=== PATIENT | male | born 1935 | race Caucasian/White ===

== ENCOUNTER 2018-10-10 08:26 | Emergency (ER) | payer MEDICARE, BC ==
--- NOTE | 2018-10-10 10:11 | EDM.PDOC ---
ED HPI GENERAL MEDICAL PROBLEM - General Chief Complaint: Upper Extremity Injury/Pain Stated Complaint: FALL/R SHOULDER PAIN Time Seen by Provider: 10/10/18 09:12 Source of Information: Reports: Patient History Limitations: Reports: No Limitations - History of Present Illness INITIAL COMMENTS - FREE TEXT/NARRATIVE: The patient presents with right shoulder pain. He was walking off a curve and fell and landed on his right arm. He has pain to the right shoulder. He has no pain in the right wrist or elbow just the shoulder. He did not hit his head or hurt his neck. He had no LOC. He has pain with moving his shoulder and he hears a grinding noise in his shoulder. Onset: Sudden Duration: Day(s): (Yesterday) Location: Reports: Upper Extremity, Right (shoulder) Quality: Reports: Sharp Severity: Moderate Improves with: Reports: Immobilization Worsens with: Reports: Movement Associated Symptoms: Reports: No Other Symptoms Right Upper Arm Pain Score (Numeric/FACES): 2 - Related Data Allergies Allergy/AdvReac Type Severity Reaction Status Date / Time No Known Allergies Allergy Verified 10/10/18 09:02 Home Meds: Home Meds Enalapril [Vasotec] 1 tab PO DAILY 10/10/18 [History] Omeprazole Magnesium [Prilosec Otc] 10 mg PO DAILY 10/10/18 [History] Warfarin [Coumadin] 1 tab PO ASDIRECTED 10/10/18 [History] traMADol [Ultram] 50 - 100 mg PO Q6H PRN #20 tab 10/10/18 [Rx] Past Medical History Cardiovascular History: Reports: High Cholesterol, Hypertension Neurological History: Reports: Other (See Below) Other Neuro History: West Nile virus - Past Surgical History HEENT Surgical History: Reports: Tonsillectomy Social & Family History - Tobacco Use Smoking Status *Q: Never Smoker Second Hand Smoke Exposure: Yes - Caffeine Use Caffeine Use: Reports: Coffee - Recreational Drug Use Recreational Drug Use: No Review of Systems - Review of Systems Review Of Systems: See Below Constitutional: Reports: No Symptoms Eyes: Reports: No Symptoms Ears: Reports: No Symptoms Nose: Reports: No Symptoms Mouth/Throat: Reports: No Symptoms Respiratory: Reports: No Symptoms Cardiovascular: Reports: No Symptoms GI/Abdominal: Reports: No Symptoms Genitourinary: Reports: No Symptoms Musculoskeletal: Reports: Shoulder Pain (Right) ED EXAM, GENERAL - Physical Exam Exam: See Below Exam Limited By: No Limitations General Appearance: Alert, No Apparent Distress Ears: Normal External Exam Nose: Normal Inspection Head: Atraumatic, Normocephalic Neck: Normal Inspection Respiratory/Chest: No Respiratory Distress Extremities: Other (Abrasions to the right wrist. Pain upon palpation to the lateral shoulder. Limited range of motion due to pain. Good sensation and pulses distally.) Course - Vital Signs Last Recorded V/S: Last Vital Signs Temp 98 F 10/10/18 08:59 Pulse 96 10/10/18 08:59 Resp 16 10/10/18 08:59 BP 144/66 H 10/10/18 08:59 Pulse Ox 96 10/10/18 08:59 - Orders/Labs/Meds Orders: Active Orders 24 hr Category Date Time Status Humerus Rt [CR] Stat Exams 10/10/18 09:25 Taken Shoulder Comp Rt [CR] Stat Exams 10/10/18 09:24 Taken - Re-Assessments/Exams Free Text/Narrative Re-Assessment/Exam: 10/10/18 10:09 I ordered an x-ray of his shoulder and humerus and I do not see a fracture just some mild arthritis. I am concerned he may have an injured rotator cuff. I will have him see OT and Dr Fuller. Departure - Departure Time of Disposition: 10:10 Disposition: Home, Self-Care 01 Condition: Good Clinical Impression: Fall Qualifiers: Encounter type: initial encounter Qualified Code(s): W19.XXXA - Unspecified fall, initial encounter Abrasion of right wrist Qualifiers: Encounter type: initial encounter Qualified Code(s): S60.811A - Abrasion of right wrist, initial encounter Shoulder pain, right Qualifiers: Chronicity: acute Qualified Code(s): M25.511 - Pain in right shoulder Injury of right rotator cuff Qualifiers: Encounter type: initial encounter Qualified Code(s): S46.001A - Unspecified injury of muscle(s) and tendon(s) of the rotator cuff of right shoulder, initial encounter - Discharge Information *PRESCRIPTION DRUG MONITORING PROGRAM REVIEWED*: No *COPY OF PRESCRIPTION DRUG MONITORING REPORT IN PATIENT ANYI: No Prescriptions: traMADol [Ultram] 50 - 100 mg PO Q6H PRN #20 tab PRN Reason: Pain Referrals: Jamar Moran Jr, MD [Primary Care Provider] - Jovani Fuller MD [Physician] - 2 Weeks Additional Instructions: Take motrin or tylenol for pain. If that does not work, try the tramadol. Ice your shoulder for 15 minutes 3 times per day for 2 days. Follow up with occupational therapy at any of our therapists in [facility]. Follow up with Dr Fuller in 2 weeks. Please return if you are worse. - My Orders Last 24 Hours: My Active Orders 10/10/18 09:24 Shoulder Comp Rt [CR] Stat 10/10/18 09:25 Humerus Rt [CR] Stat - Assessment/Plan Last 24 Hours: My Active Orders 10/10/18 09:24 Shoulder Comp Rt [CR] Stat 10/10/18 09:25 Humerus Rt [CR] Stat
--- NOTE | 2018-10-10 10:55 | CR ---
Right shoulder: Three views of the right shoulder were obtained. Inferior spurring is noted within the acromioclavicular joint as well as small spur noted superiorly within the acromioclavicular joint. Glenohumeral joint is unremarkable. No acute fracture or dislocation is seen. Mild inferior spurring is seen off the acromion process. Incidental granuloma is noted within the right upper chest. Impression: 1. Degenerative change and incidental lung granuloma. 2. Nothing acute is appreciated on right shoulder exam. Diagnostic code #2
--- NOTE | 2018-10-10 10:55 | CR ---
Right humerus: Two views of the right humerus were obtained. Comparison: No previous study. Mild degenerative change is partially seen within the elbow. Humerus appears intact. No fracture is seen. Inferior spurring and superior spurring is noted within the acromioclavicular joint. Impression: 1. Degenerative change. Nothing acute is appreciated within the right humerus. Diagnostic code #2
== END 2018-10-10 10:27 | disposition home or self-care (01) ==
LOC: JD.ED 08:26
DX: S46.001A Unspecified injury of muscle(s) and tendon(s) of the rotator cuff of right shoulder, initial encounter (principal); S60.811A Abrasion of right wrist, initial encounter; I10 Essential (primary) hypertension; E78.00 Pure hypercholesterolemia, unspecified; Z77.22 Contact with and (suspected) exposure to environmental tobacco smoke (acute) (chronic); Z79.899 Other long term (current) drug therapy; W19.XXXA Unspecified fall, initial encounter
CPT/HCPCS: 73030-26-RT; 73030-RT; 73060-26-RT; 73060-RT; 99283; 99283-25

== ENCOUNTER 2019-03-01 10:32 | Emergency (ER) | payer MEDICARE, BC ==
--- NOTE | 2019-03-01 11:23 | EDM.PDOC ---
ED HPI GENERAL MEDICAL PROBLEM - General Chief Complaint: Neurological Problem Stated Complaint: DIFFICULTY WITH SPEECH LAST NIGHT Time Seen by Provider: 03/01/19 10:44 Source of Information: Reports: Patient History Limitations: Reports: No Limitations - History of Present Illness INITIAL COMMENTS - FREE TEXT/NARRATIVE: The patient presents with difficulty speaking. He says he went out to eat last night and when he got home he called his sister. He said he had a hard time finding his words. He was not slurring his words. This lasted for about 1/2 hour. He said about a year ago this happened when he tried to say the lords prayer. He has no symptoms now. He has no headache, vision, changes, chest pain, fever, chills, cough, shortness of breath, abdominal pain, nausea or vomiting. He does not have any numbness or weakness that is new. He does have foot drop on the right from [facility] from 2002. His has A-fib and his is on coumadin. Onset: Sudden Duration: Day(s): (Last night) Severity: Mild Improves with: Reports: None Worsens with: Reports: None Associated Symptoms: Reports: No Other Symptoms - Related Data Allergies Allergy/AdvReac Type Severity Reaction Status Date / Time No Known Allergies Allergy Verified 03/01/19 10:52 Home Meds: Home Meds Enalapril [Vasotec] 1 tab PO DAILY 10/10/18 [History] Omeprazole Magnesium [Prilosec Otc] 10 mg PO DAILY 10/10/18 [History] Warfarin [Coumadin] 1 tab PO ASDIRECTED 10/10/18 [History] Past Medical History Cardiovascular History: Reports: High Cholesterol, Hypertension Neurological History: Reports: Other (See Below) Other Neuro History: West Nile virus Other Endocrine/Metabolic History: pre diabetic - Past Surgical History HEENT Surgical History: Reports: Tonsillectomy Musculoskeletal Surgical History: Reports: Knee Replacement Social & Family History - Tobacco Use Smoking Status *Q: Never Smoker - Caffeine Use Caffeine Use: Reports: Coffee - Recreational Drug Use Recreational Drug Use: No ED ROS GENERAL - Review of Systems Review Of Systems: See Below Constitutional: Reports: No Symptoms HEENT: Reports: No Symptoms Respiratory: Reports: No Symptoms Cardiovascular: Reports: No Symptoms Endocrine: Reports: No Symptoms GI/Abdominal: Reports: No Symptoms : Reports: No Symptoms Musculoskeletal: Reports: No Symptoms Skin: Reports: No Symptoms Neurological: Reports: Other (Trouble finding his words last night). Denies: Numbness, Weakness ED EXAM, NEURO - Physical Exam Exam: See Below Exam Limited By: No Limitations General Appearance: Alert, No Apparent Distress Ears: Normal External Exam Nose: Normal Inspection Head Exam: Atraumatic, Normocephalic Neck: Normal Inspection Respiratory/Chest: No Respiratory Distress, Lungs Clear, Normal Breath Sounds Cardiovascular: Regular Rate, Rhythm, No Edema, No Murmur GI/Abdominal: Soft, Non-Tender, No Organomegaly, No Mass Neurological: Alert, Oriented x 3, Other (Mild weakness right foot.) Course - Vital Signs Last Recorded V/S: Last Vital Signs Temp 98.1 F 03/01/19 10:43 Pulse 77 03/01/19 10:43 Resp 13 03/01/19 10:43 BP 127/67 03/01/19 10:43 Pulse Ox 98 03/01/19 10:43 - Re-Assessments/Exams Free Text/Narrative Re-Assessment/Exam: 03/01/19 11:28 I examined the patient and there is no new neurologic deficit. I wanted to do a CT of his head, EKG and labs. He politely refused and will see Dr Moran in a couple of days. Departure - Departure Time of Disposition: 11:20 Disposition: Home, Self-Care 01 Condition: Good Clinical Impression: Difficulty speaking - Discharge Information *PRESCRIPTION DRUG MONITORING PROGRAM REVIEWED*: No *COPY OF PRESCRIPTION DRUG MONITORING REPORT IN PATIENT ANYI: No Referrals: Jamar Moran Jr, MD [Primary Care Provider] - 3 Days Forms: ED Department Discharge Additional Instructions: Take your medication as prescribed. Follow up with Dr Moran this week. Please return if you are worse.
== END 2019-03-01 11:39 | disposition home or self-care (01) ==
LOC: JD.ED 10:32
DX: R47.02 Dysphasia (principal); I48.91 Unspecified atrial fibrillation; I10 Essential (primary) hypertension; Z79.01 Long term (current) use of anticoagulants; Z79.899 Other long term (current) drug therapy
CPT/HCPCS: 99282; 99284

== ENCOUNTER 2019-03-09 10:24 | Emergency (ER) | payer MEDICARE, BC ==
--- NOTE | 2019-03-09 10:55 | EDM.PDOC ---
ED HPI GENERAL MEDICAL PROBLEM - General Chief Complaint: Skin Complaint Stated Complaint: DRAINAGE POST SURGERY ON SUNDAY Time Seen by Provider: 03/09/19 10:40 Source of Information: Reports: Patient, Family (Daughter) History Limitations: Reports: No Limitations - History of Present Illness INITIAL COMMENTS - FREE TEXT/NARRATIVE: 84-year-old male presents to the ED with 2 of his daughters. He appreciated a good deal of serous drainage from his right carotid endarterectomy surgical wound performed 5 days ago. There was enough drainage that it soaked his upper T -shirt and shirt making it look like heat spelled coffee on himself. It appears that it started draining during the night. On examination there is serous drainage with slight brownish tinge to it suggesting some blood from the inferior aspect of the right surgical wound. There are remains about a golf ball swelling at the inferior aspect of the wound suggesting that there is some serous fluid collection and perhaps some hematoma formation. He may continue further drainage. Couple 4 x 4's and dressing applied to the lower aspect of the wound. At this point time there is no signs of infection. I will write a prescription for doxepin 100 mg twice daily for 10 days to be filled if he develops any redness pain or increased swelling in this area. Onset: Sudden (Seems to have developed serous drainage from surgical wound overnight.) Onset Date: 03/09/19 Onset Time: 00:00 Duration: Hour(s): Location: Reports: Neck (Drainage from the inferior aspect of recent right carotid endarterectomy wound. The vehicle procedure was performed 5 days ago. He has no pain in the area. He reports there was significant swelling which is improved since the wound has drained.) Quality: Reports: Other Severity: Moderate (Wound drainage right anterior lateral neck) Improves with: Reports: Other (Continues to use very minimal serous material) Worsens with: Reports: None Context: Reports: Other (Spontaneous occurrence of serous drainage from right carotid endarterectomy wound done 5 days ago. Inferior aspect.). Denies: Activity, Exercise, Lifting, Sick Contact, Trauma Associated Symptoms: Reports: No Other Symptoms, Other (He states his voice is getting much stronger and clinically it's normal.) Treatments PATTERN ATTENDANT: Reports: Other (see below) (Only prescribed medications.) - Related Data Allergies Allergy/AdvReac Type Severity Reaction Status Date / Time No Known Allergies Allergy Verified 03/09/19 10:37 Home Meds: Home Meds Enalapril [Vasotec] 1 tab PO DAILY 10/10/18 [History] Aspirin [Ecotrin EC] 81 mg PO DAILY 03/09/19 [History] Doxycycline [Vibramycin] 100 mg PO BID #20 cap 03/09/19 [Rx] Ezetimibe 10 mg PO DAILY 03/09/19 [History] Mupirocin Oint [Bactroban Oint] 1 applic NASRT BEDTIME 03/09/19 [History] Tamsulosin [Flomax] 0.4 mg PO BID 03/09/19 [History] Warfarin [Coumadin] 5 mg PO 12 03/09/19 [History] Past Medical History Cardiovascular History: Reports: Afib (On Coumadin.), High Cholesterol, Hypertension Neurological History: Reports: Other (See Below) 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 Denies: Fever, Chills, Malaise, Weakness, Decreased Appetite HEENT: Reports: Other Respiratory: Reports: Shortness of Breath (He reports his voice hoarseness is improved remarkably over last 5 days since surgery.), Cough, Sputum (Occasional cough up occasional sputum production). Denies: Wheezing, Pleuritic Chest Pain ( Minimal exertion chronically.) Cardiovascular: Reports: Blood Pressure Problem. Denies: Chest Pain, Claudication, Dyspnea on Exertion, Edema, Lightheadedness, Orthopnea Endocrine: Reports: Fatigue GI/Abdominal: Reports: Constipation : Reports: Frequency, Other (Nocturia 2 or 3) Musculoskeletal: Reports: Neck Pain, Joint Pain (Low back knees and hips and shoulders at times) Skin: Reports: Other (Healing surgical wound right anterior lateral neck) Neurological: Reports: No Symptoms ( zone 3.) Psychiatric: Reports: No Symptoms Hematologic/Lymphatic: Reports: No Symptoms Immunologic: Reports: No Symptoms ED EXAM, SKIN/RASH Exam: See Below Exam Limited By: No Limitations General Appearance: Alert, WD/WN, No Apparent Distress Neck: Other (Examination was limited to the right anterior lateral neck surgical wound where he had a right carotid endarterectomy performed 5 days ago. The wound is not sutured but Dermabond has been applied. It appears to be healing adequately. There is a golf ball swelling at the inferior aspect of the wound with no fluctuation. Very minimal serous drainage from the very inferior aspect of the surgical wound. It appears to be a resolving seroma/hematoma.) Respiratory/Chest: No Respiratory Distress, Respiratory Distress, Decreased Breath Sounds (O2 sats are 91% on room air. He states this is normal for him. Increase the lower 25% lung fam bilaterally.) Cardiovascular: No Edema, No Gallop, No Murmur, No Rub, Irregularly Irregular ( He is in chronic atrial fibrillation. Rate controlled in the 90s.). No: Normal Peripheral Pulses Course - Vital Signs Last Recorded V/S: Last Vital Signs Temp 36.4 C 03/09/19 10:33 Pulse 93 03/09/19 10:33 Resp 15 03/09/19 10:33 BP 147/86 H 03/09/19 10:33 Pulse Ox 91 L 03/09/19 10:33 - Radiology Interpretation Free Text/Narrative:: 84-year-old male presents to the ED due to drainage from his right carotid endarterectomy wound which was performed 5 days ago in [place]. Patient states he awoke with coffee grounds likes staining of his entire upper white T-shirt this morning. Appears that it started draining during the night. He reports there was more swelling in the area and it's decreased in size. He has no pain. Examination reveals no signs of an infection. Appears to have a resolving seroma. New dressing will be applied to his soak up any further drainage from the inferior aspect of the wound. I did give him a prescription for Doxil x-ray 100 mg twice a day for 10 days to fill if there is any sign of redness or increased swelling in the next 48-72 hours. I suspect he will not need the antibiotics. Departure - Departure Time of Disposition: 10:51 Disposition: Home, Self-Care 01 Condition: Fair Clinical Impression: Wound drainage - Discharge Information *PRESCRIPTION DRUG MONITORING PROGRAM REVIEWED*: Not Applicable *COPY OF PRESCRIPTION DRUG MONITORING REPORT IN PATIENT ANYI: Not Applicable Prescriptions: Doxycycline [Vibramycin] 100 mg PO BID #20 cap Instructions: Wound Infection, [id number] Referrals: Jamar Moran Jr, MD [Primary Care Provider] - Forms: ED Department Discharge Additional Instructions: Evaluation the emergency room today in regards to significant serous drainage from surgical wound right anterior neck. You underwent right carotid endarterectomy 5 days ago. The wound is draining from the inferior aspect. The wound is draining clear fluid perhaps old blood noted as well. This is not unexpected. Collection of blood under the skin starts to break down or liquefy 5 -7 days after surgery and if there is an opening it will drain out. On inspection there is no sign of infection of the wound at this point time. There still remains a golf ball swelling at the inferior aspect of the surgical wound which likely will drain further fluid. Prescription written for antibiotic called doxycycline 100 mg to be taken twice daily for 10 days if you develop redness or increased pain or swelling in this area , then please fill a prescription.
== END 2019-03-09 11:04 | disposition home or self-care (01) ==
LOC: JD.ED 10:24
DX: I97.89 Other postprocedural complications and disorders of the circulatory system, not elsewhere classified (principal); Z79.899 Other long term (current) drug therapy; I48.91 Unspecified atrial fibrillation; I10 Essential (primary) hypertension; E78.00 Pure hypercholesterolemia, unspecified; Z79.82 Long term (current) use of aspirin
CPT/HCPCS: 99282; 99283

== ENCOUNTER 2023-05-02 13:48 | Emergency (ER) | payer MEDICARE, BC ==
[2023-05-02] MEDS ORDERED: Sodium Chloride 0.9% 10 ML Syringe FLUSH PRN (13:54)
[2023-05-02] MEDS ORDERED: HYDROmorphone 0.5 MG/0.5 ML Syringe IVPUSH STA (14:02)
[2023-05-02 14:04] LABS: BASOPHILS PERCENT AUTO 0.2 % (0.0-1.0); EOSINOPHILS PERCENT AUTO 0.2 % (0.0-6.0); HEMATOCRIT 32.5 % (42.0-52.0); HEMOGLOBIN 11.4 gm/dl (14.0-18.0); IMMATURE GRAN ABSOLUTE AUTO 0.03 K/mm3 (0.00-0.05); IMMATURE GRAN PERCENT AUTO 0.3 % (0.0-0.4); LYMPHOCYTES ABSOLUTE AUTO 0.7 K/mm3 (1.0-4.8); LYMPHOCYTES PERCENT AUTO 7.4 % (24.0-44.0); MEAN CORPUSCULAR HEMOGLOBIN 34.1 pg (28.0-32.0); MEAN CORPUSCULAR HGB CONC 35.1 g/dl (32.0-36.0); MEAN CORPUSCULAR VOLUME 97.3 fl (83.0-99.0); MEAN PLATELET VOLUME 9.9 fl (9.4-12.4); MONOCYTES ABSOLUTE AUTO 0.6 K/mm3 (0.0-0.8); MONOCYTES PERCENT AUTO 6.2 % (0.0-8.0); NEUTROPHILS ABSOLUTE AUTO 8.3 K/mm3 (1.8-7.7); NEUTROPHILS PERCENT AUTO 85.7 % (41.0-71.0); PLATELET COUNT,PLT 160 K/mm3 (150-400); RED BLOOD CELL COUNT 3.34 M/mm3 (4.52-5.90); WHITE BLOOD CELL COUNT,WBC 9.71 K/mm3 (3.9-11.3)
[2023-05-02 14:27] LABS: A/G RATIO 0.9 (1-2); ALANINE AMINOTRANSFERASE,ALT 13 U/L (16-63); ALKALINE PHOSPHATASE 99 U/L (46-116); ASPARTATE AMNIOTRANSFERASE,AST 18 U/L (15-37); BILIRUBIN TOTAL 0.7 mg/dL (0.2-1.0); BLOOD UREA NITROGEN,BUN 14 mg/dL (7-18); CALCIUM 8.4 mg/dL (8.5-10.1); CARBON DIOXIDE,CO2 20 mEq/L (21-32); CHLORIDE,CL 99 mEq/L (98-107); ESTIMATED GFR 72 mL/min (>60); GLUCOSE RANDOM 207 mg/dL (70-99); PROTEIN TOTAL,TP 6.4 g/dl (6.4-8.2); SODIUM,NA 131 mEq/L (136-145)
[2023-05-02] MEDS ORDERED: HYDROmorphone 0.5 MG/0.5 ML Syringe IVPUSH ONE (17:26)
== END 2023-05-02 18:12 ==
LOC: JD.ED 13:48
DX: S72.002A Fracture of unspecified part of neck of left femur, initial encounter for closed fracture (principal); I10 Essential (primary) hypertension; I48.20 Chronic atrial fibrillation, unspecified; W01.0XXA Fall on same level from slipping, tripping and stumbling without subsequent striking against object, initial encounter; Z79.899 Other long term (current) drug therapy; Z79.01 Long term (current) use of anticoagulants
CPT/HCPCS: 36415; 70450; 70450-26; 73502-26-LT; 73502-LT; 80053; 85025; 96374; 96376; 99285-25; J1170

== ENCOUNTER 2023-09-27 09:17 | Emergency (ER) | payer MEDICARE ==
[2023-09-27] MEDS: Atropine 0.1 MG/ML 10 ML Syringe IVPUSH ONE ×2 (09:33→09:42)
[2023-09-27] MEDS: Atropine 0.1 MG/ML 10 ML Syringe ONE (09:33)
[2023-09-27] MEDS ORDERED: Atropine 0.4 MG/ML SDV IVPUSH ONE (09:37)
[2023-09-27 09:44] LABS: BASOPHILS PERCENT AUTO 0.1 % (0.0-1.0); EOSINOPHILS PERCENT AUTO 0.1 % (0.0-6.0); HEMATOCRIT 37.5 % (42.0-52.0); HEMOGLOBIN 12.5 gm/dl (14.0-18.0); IMMATURE GRAN ABSOLUTE AUTO 0.03 K/mm3 (0.00-0.05); IMMATURE GRAN PERCENT AUTO 0.4 % (0.0-0.4); LYMPHOCYTES ABSOLUTE AUTO 0.5 K/mm3 (1.0-4.8); LYMPHOCYTES PERCENT AUTO 5.7 % (24.0-44.0); MEAN CORPUSCULAR HEMOGLOBIN 32.6 pg (28.0-32.0); MEAN CORPUSCULAR HGB CONC 33.3 g/dl (32.0-36.0); MEAN CORPUSCULAR VOLUME 97.9 fl (83.0-99.0); MEAN PLATELET VOLUME 9.4 fl (9.4-12.4); MONOCYTES ABSOLUTE AUTO 0.3 K/mm3 (0.0-0.8); NEUTROPHILS ABSOLUTE AUTO 7.6 K/mm3 (1.8-7.7); NEUTROPHILS PERCENT AUTO 90.7 % (41.0-71.0); PLATELET COUNT,PLT 151 K/mm3 (150-400); RED BLOOD CELL COUNT 3.83 M/mm3 (4.52-5.90); WHITE BLOOD CELL COUNT,WBC 8.36 K/mm3 (3.9-11.3)
[2023-09-27 10:09] LABS: ALBUMIN 3.4 g/dl (3.4-5.0); ANION GAP 15.6 (5-15); BILIRUBIN TOTAL 0.5 mg/dL (0.2-1.0); BUN/CREATININE RATIO 8.8 (14-18); CREATININE 1.6 mg/dL (0.7-1.3); EST CRCL DRUG DOSING (CG) 33.34 mL/min; POTASSIUM,K 4.6 mEq/L (3.5-5.1); PROTEIN TOTAL,TP 6.8 g/dl (6.4-8.2)
[2023-09-27] MEDS: EPINEPHrine 1 MG in Dextrose 5% in Water 99 ML IV SCH (10:51)
[2023-09-27] MEDS: Sodium Chloride 0.9% 500 ML IV ONE (11:02)
== END 2023-09-27 11:45 ==
LOC: JD.ED 09:17
DX: R00.1 Bradycardia, unspecified (principal); I10 Essential (primary) hypertension; Z79.82 Long term (current) use of aspirin; Z79.899 Other long term (current) drug therapy; Z79.2 Long term (current) use of antibiotics
CPT/HCPCS: 36415; 71045; 71045-26; 80053; 83690; 83880; 84484; 85025; 93005; 93010; 96365; 96375; 99285; 99285-25; J0171; J0461; J7030; J7060